=== PATIENT | female | born 2000 | race Caucasian/White ===

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

== ENCOUNTER 2022-05-19 13:03 | Emergency (ER) | payer OTHER ==
[2022-05-19] MEDS ORDERED: FAMOTIDINE 20 MG TAB PO STA (13:18)
[2022-05-19] MEDS ORDERED: methylPREDNISolone SOD SUCCI 125 MG/2 ML VIAL IM ONE (13:18)
--- NOTE | 2022-05-19 14:24 | ED ---
Allergic Reaction HPI - General Chief complaint: Allergic Reaction Stated complaint: hives Time Seen by Provider: 05/19/22 13:13 Source: patient Mode of arrival: ambulatory Limitations: no limitations - History of Present Illness Initial Comments: Patient is a 21-year-old female presenting with chief complaint of hives. Patient states that she has been in hives persisting for a few weeks. She was seen by her PCP who diagnosed her with stress hives, she started her on an antidepressant instructed her to take Benadryl. Patient states that the hives a re now spreading. She denies any difficulty breathing or swallowing. No chest pain, nausea, vomiting, abdominal pain. No new foods, medications, products. - Related Data Home Medications Medication Instructions Recorded Confirmed Naproxen Sodium [Aleve] 220 mg PO DAILY 09/27/18 09/27/18 Pediatric Multivitamin No.30 1 tab PO DAILY 09/27/18 09/27/18 [Multivitamin Children's Gummies] Previous Rx's Medication Instructions Recorded Azithromycin [Zithromax Z-pack (6 250 mg PO DIRECTED #6 tab 08/28/19 tabs)] methylPREDNISolone [Medrol Dose 4 mg PO DIRECTED #1 pack 08/28/19 Pack] methylPREDNISolone Dose Pack 4 mg PO DIRECTED #1 packet 05/19/22 [Medrol Dose Pack] Allergies Allergy/AdvReac Type Severity Reaction Status Date / Time cat dander Allergy Unknown Verified 09/27/18 22:47 Review of Systems ROS Statement: Those systems with pertinent positive or pertinent negative responses have been documented in the HPI. ROS Other: All systems not noted in ROS Statement are negative. Past Medical History Past Medical History: Asthma History of Any Multi-Drug Resistant Organisms: None Reported Past Surgical History: Appendectomy Past Psychological History: Depression Past Alcohol Use History: None Reported Past Drug Use History: None Reported General Exam Limitations: no limitations General appearance: alert, in no apparent distress Head exam: Present: atraumatic, normocephalic, normal inspection Eye exam: Present: normal appearance ENT exam: Present: normal exam, normal oropharynx, mucous membranes moist Neck exam: Present: normal inspection, full ROM. Absent: tenderness Respiratory exam: Present: normal lung sounds bilaterally. Absent: respiratory distress, wheezes, rales, rhonchi, stridor Cardiovascular Exam: Present: regular rate, normal rhythm, normal heart sounds. Absent: systolic murmur, diastolic murmur, rubs, gallop, clicks Neurological exam: Present: alert, oriented X3, CN II-XII intact Psychiatric exam: Present: normal affect, normal mood Skin exam: Present: warm, dry, intact, normal color, urticaria Course Vital Signs 05/19/22 05/19/22 13:07 14:40 Temperature 97.9 F 98.8 F Pulse Rate 100 88 Respiratory 20 18 Rate Blood Pressure 118/80 124/68 O2 Sat by Pulse 98 98 Oximetry Medical Decision Making - Medical Decision Making Patient is a 21-year-old female presenting with chief complaint of urticaria to the trunk and upper extremities have been persisting for a few weeks. Patient has been taking Benadryl with no relief. On examination heart and lungs are clear to auscultation, normal posterior pharynx. Patient is having no difficulty breathing or swallowing. Respirations unlabored. Patient took Benadryl before coming to the ER, she is given Solu-Medrol and Pepcid here. She reports some relief in symptoms. She'll be given a Medrol Dosepak for home and instructed to continue taking Benadryl as needed. Follow-up with PCP. Report back to ER with any new or worsening symptoms. Discussed return parameters and answered all questions. Patient conveyed verbal understanding and agreed to the plan. I discussed this case in detail with my attending Dr. Stafford Disposition Clinical Impression: Urticaria Disposition: HOME SELF-CARE Condition: Good Instructions (If sedation given, give patient instructions): Urticaria (ED) Additional Instructions: Follow-up with PCP. Report back to ER with any new or worsening symptoms. Take medication as prescribed. Prescriptions: methylPREDNISolone Dose Pack [Medrol Dose Pack] 4 mg PO DIRECTED #1 packet Is patient prescribed a controlled substance at d/c from ED?: No Referrals: Laz Griffith MD [Primary Care Provider] - 1-2 days Time of Disposition: 14:23
[2022-05-19 16:48] VITALS: BP 124/68; PULSE 88; RESP 18; TEMP 98.8
== END 2022-05-19 14:40 | disposition home or self-care (01) ==
LOC: EEVIPCON 13:03 → EC 13:03
DX: L50.9 Urticaria, unspecified (principal); J45.909 Unspecified asthma, uncomplicated; Z91.048 Other nonmedicinal substance allergy status
CPT/HCPCS: 99283; 96372; J2930

== ENCOUNTER 2022-06-27 09:38 | Emergency (ER) | payer OTHER ==
[2022-06-27 10:08] VITALS: RESP 16; TEMP 97.4
--- NOTE | 2022-06-27 11:13 | ED ---
General Adult HPI - General Chief complaint: Fall Stated complaint: [facility] - rt arm/leg injury Time Seen by Provider: 06/27/22 10:25 Source: patient, RN notes reviewed Mode of arrival: ambulatory Limitations: no limitations - History of Present Illness Initial comments: 21-year-old female presents to the emergency for a chief complaint of fall. Patient states she was pulling a drawer out at work and was standing on a 1 foot high platform. Patient holds too hard and fell backwards. She has pain on the right side of her neck. Her right hand feels tingly. Her right foot and ankle hurt. She states her lateral right foot is starting to swell. She also hurt her left knee but has no difficulty moving the left knee is able to ambulate on the left knee. Patient states she also has right shoulder elbow and wrist pain but is able to move these and does not think anything is broken.she did not lose consciousness.Patient has no other complaints at this time including shortness of breath, chest pain, abdominal pain, nausea or vomiting, headache, or visual changes. - Related Data Home Medications Medication Instructions Recorded Confirmed Naproxen Sodium [Aleve] 220 mg PO DAILY 09/27/18 09/27/18 Pediatric Multivitamin No.30 1 tab PO DAILY 09/27/18 09/27/18 [Multivitamin Children's Gummies] Previous Rx's Medication Instructions Recorded Azithromycin [Zithromax Z-pack (6 250 mg PO DIRECTED #6 tab 08/28/19 tabs)] methylPREDNISolone [Medrol Dose 4 mg PO DIRECTED #1 pack 08/28/19 Pack] methylPREDNISolone Dose Pack 4 mg PO DIRECTED #1 packet 05/19/22 [Medrol Dose Pack] Allergies Allergy/AdvReac Type Severity Reaction Status Date / Time cat dander Allergy Unknown Verified 06/27/22 10:05 Review of Systems ROS Statement: Those systems with pertinent positive or pertinent negative responses have been documented in the HPI. ROS Other: All systems not noted in ROS Statement are negative. Past Medical History Past Medical History: Asthma History of Any Multi-Drug Resistant Organisms: None Reported Past Surgical History: Appendectomy Past Psychological History: Depression Smoking Status: Current every day smoker Past Alcohol Use History: None Reported Past Drug Use History: None Reported General Exam - General Exam Comments Initial Comments: full range of motion of the upper and lower extremities. No tenderness of the upper extremities or left lower extremity. Patient does have tenderness of the lateral right foot. She also has some mild edema of the lateral right foot with a DP pulse of 2+. Limitations: no limitations General appearance: alert, in no apparent distress Head exam: Present: atraumatic Eye exam: Present: normal appearance, PERRL, EOMI. Absent: scleral icterus, conjunctival injection ENT exam: Present: normal exam, mucous membranes moist Neck exam: Present: tenderness (right posterior lateral neck tenderness, no midline tenderness.), full ROM Respiratory exam: Present: normal lung sounds bilaterally. Absent: respiratory distress, wheezes Cardiovascular Exam: Present: regular rate, normal rhythm, normal heart sounds GI/Abdominal exam: Present: soft, normal bowel sounds. Absent: distended, tenderness Course Vital Signs 06/27/22 10:05 Temperature 97.4 F L Pulse Rate 81 Respiratory 16 Rate Blood Pressure 137/87 O2 Sat by Pulse 99 Oximetry Medical Decision Making - Medical Decision Making vitals are stable. Patient is well-appearing. HPI and physical exam as documented. Was pt. sent in by a medical professional or institution (, PA, ANTHROPOLOGY INSTRUCTOR, urgent care, hospital, or alf...) When possible be specific @ -[No] Did you speak to anyone other than the patient for history (EMS, parent, family, police, friend...)? What history was obtained from this source @ -[No] Did you review nursing and triage notes (agree or disagree)? Why? @ -[I reviewed and agree with nursing and triage notes] Were old charts reviewed (outside hosp., previous admission, EMS record, old EKG, old radiological studies, urgent care reports/EKG's, alf records)? Report findings @ -[No old charts were reviewed] Differential Diagnosis (chest pain, altered mental status, abdominal pain women, abdominal pain men, vaginal bleeding, weakness, fever, dyspnea, syncope, headache, dizziness, GI bleed, back pain, seizure, CVA, palpatations, mental health)? @ -Neck strain versus much less likely fracture versus spasm; ankle fracture versus strain versus soft tissue injury EKG interpreted by me (3pts min.). @ -None X-rays interpreted by me (1pt min.). @ -X-ray of the right foot and ankle show no fracture. CT interpreted by me (1pt min.). @ -CT of the brain and C-spine show no acute fracture or intracranial hemorrhage U/S interpreted by me (1pt. min.). @ -[None done] What testing was considered but not performed or refused? (CT, X-rays, U/S, labs)? Why? @ -[None] What meds were considered but not given or refused? Why? @ -[None] Did you discuss the management of the patient with other professionals (professionals i.e. , PA, ANTHROPOLOGY INSTRUCTOR, lab, RT, psych nurse, social media designer, equity manager, teacher, air force senior officer, window caser)? Give summary @ -Dr. Stafford Was smoking cessation discussed for >3mins.? @ -[No] Was critical care preformed (if so, how long)? @ -[No] Were there social determinants of health that impacted care today? How? (Homelessness, low income, unemployed, alcoholism, drug addiction, transportation, low edu. Level, literacy, decrease access to med. care, care home, rehab)? @ -[No] Was there de-escalation of care discussed even if they declined (Discuss DNR or withdrawal of care, Hospice)? DNR status @ -[No] What co-morbidities impacted this encounter? (DM, HTN, Smoking, COPD, CAD, Cancer, CVA, ARF, Chemo, Hep., AIDS, mental health diagnosis, sleep apnea, morb id obesity)? @ -[None] Was patient admitted / discharged? Hospital course, mention meds given and route, prescriptions, significant lab abnormalities, going to OR and other pertinent info. @ -Imaging was performed and patient was discharged home Undiagnosed new problem with uncertain prognosis? @ -None Drug Therapy requiring intensive monitoring for toxicity (Heparin, Nitro, Insulin, Cardizem)? @ -[No] Were any procedures done? @ -[No] Diagnosis/symptom? @ -Neck strain Acute, or Chronic, or Acute on Chronic? @ -Acute Uncomplicated (without systemic symptoms) or Complicated (systemic symptoms)? @ -Uncomplicated Side effects of treatment? @ -[No] Exacerbation, Progression, or Severe Exacerbation? @ -[No] Poses a threat to life or bodily function? How? (Chest pain, [place], [place], pneumonia, PE, COPD, DKA, ARF, appy, cholecystitis, CVA, Diverticulitis, Homicidal, Suicidal, threat to staff... and all critical care pts) @ -[No] Diagnosis/symptom? @ -Ankle sprain Acute, or Chronic, or Acute on Chronic? @ -Acute Uncomplicated (without systemic symptoms) or Complicated (systemic symptoms)? @ -Uncomplicated Side effects of treatment? @ -none Exacerbation, Progression, or Severe Exacerbation] @ -no Poses a threat to life or bodily function? @ -no Disposition Clinical Impression: Neck strain, Ankle sprain Disposition: HOME SELF-CARE Condition: Good Instructions (If sedation given, give patient instructions): Ankle Sprain (ED), Cervical Strain (ED) Additional Instructions: Please take Motrin and Tylenol for pain. Rest ice and elevate right foot and ankle. Follow-up with your doctor. Return to the emergency room for any worsening symptoms. Is patient prescribed a controlled substance at d/c from ED?: No Referrals: Laz Griffith MD [Primary Care Provider] - 1-2 days Time of Disposition: 13:40
--- NOTE | 2022-06-27 12:03 | XR ---
EXAMINATION TYPE: XR ankle complete RT DATE OF EXAM: 06/27/2022 CLINICAL HISTORY: Pain after injury. TECHNIQUE: Frontal, lateral and oblique images of the right ankle and foot are obtained. COMPARISON: None. FINDINGS: There is no acute fracture/dislocation evident in the right ankle. The ankle mortise appe ars within normal limits. The overlying soft tissue appears unremarkable. There is no acute fracture or dislocation evident in the right foot. The joint spaces in the right f oot are preserved. Overlying soft tissue is unremarkable. IMPRESSION: There is no acute fracture or dislocation in the right ankle or foot.
--- NOTE | 2022-06-27 12:14 | CT ---
EXAMINATION TYPE: CT brain isaak wo con DATE OF EXAM: 06/27/2022 COMPARISON: NONE HISTORY: Fall at work with headache and neck pain. CT DLP: 1505.6 mGycm. Automated Exposure Control for Dose Reduction was Utilized. TECHNIQUE: CT scan of the head and cervical spine are performed without contrast. FINDINGS: There is no acute intracranial hemorrhage, mass effect, or midline shift identified. The ventricles and sulci are within normal limits in size. Forman-white matter differentiation is maintai parminder. The globes are intact and the visualized sinuses are clear. The calvarium is intact. Cervical spine is visualized in its entirety from C1 through upper thoracic levels and demonstrates s traightened alignment without evidence of acute fracture or dislocation. Prevertebral soft tissue ap pears within normal limits. The C1-C2 articulation is within normal limits. Vertebral body heights and disc space heights are maintained. Spinal canal is preserved. Axial images show normal size thyro id gland. Lung apices show no pneumothorax. IMPRESSION: 1. There is no acute fracture or dislocation evident in the cervical spine. 2. No acute intracranial hemorrhage or midline shift is seen.
--- NOTE | 2022-06-27 13:18 | XR ---
Please refer to same day right ankle report for complete details on the right foot.
[2022-06-27 14:01] VITALS: BP 142/75; PULSE 94
== END 2022-06-27 14:00 | disposition home or self-care (01) ==
LOC: EC 09:38
DX: S16.1XXA Strain of muscle, fascia and tendon at neck level, initial encounter (principal); S93.401A Sprain of unspecified ligament of right ankle, initial encounter; J45.909 Unspecified asthma, uncomplicated; F17.200 Nicotine dependence, unspecified, uncomplicated; W18.30XA Fall on same level, unspecified, initial encounter; Y93.89 Activity, other specified; Y92.69 Other specified industrial and construction area as the place of occurrence of the external cause
CPT/HCPCS: 70450; 72125; 99284

== ENCOUNTER 2023-01-15 06:18 | Emergency (ER) | payer OTHER ==
[2023-01-15 06:23] VITALS: RESP 16
[2023-01-15] MEDS ORDERED: methylPREDNISolone SOD SUCCI 125 MG/2 ML VIAL IV STA (06:36)
[2023-01-15] MEDS ORDERED: KETOROLAC 15 MG/ML 1 ML VIAL IVP STA (06:36)
[2023-01-15] MEDS ORDERED: ORPHENADRINE 30 MG/ML 2 ML VIAL IVP STA (06:36)
--- NOTE | 2023-01-15 07:11 | ED ---
Extremity Problem HPI - General Chief complaint: Extremity Problem,Nontraumatic Stated complaint: Right Arm Swelling, Neck Pain, Shoulder Pain Time Seen by Provider: 01/15/23 06:25 Source: patient, RN notes reviewed Mode of arrival: ambulatory Limitations: no limitations - History of Present Illness Initial comments: 22-year-old female presents emergency department to complaint of right arm pain. Patient states that she had an injury back in June at work. She states she is feeling better until last few days. Patient states she seen in emergency from for worsening symptoms and discharged. Patient states that she has some numbness to her right arm. Patient states that she has pain with range of motion right shoulder. Patient denies any associated weakness. She states her right arm feels swollen up into her neck. Denies any chest pain or shortness breath no fevers or chills. - Related Data Home Medications Medication Instructions Recorded Confirmed Naproxen Sodium [Aleve] 220 mg PO DAILY 09/27/18 09/27/18 Pediatric Multivitamin No.30 1 tab PO DAILY 09/27/18 09/27/18 [Multivitamin Children's Gummies] Previous Rx's Medication Instructions Recorded Cyclobenzaprine HCl 10 mg PO TID PRN 7 Days #21 tab 01/12/23 Ketorolac [Toradol] 10 mg PO Q8H PRN 5 Days #15 tab 01/12/23 predniSONE 50 mg PO DAILY #5 tab 01/15/23 Allergies Allergy/AdvReac Type Severity Reaction Status Date / Time cat dander Allergy Unknown Verified 01/12/23 08:47 Review of Systems ROS Statement: Those systems with pertinent positive or pertinent negative responses have been documented in the HPI. ROS Other: All systems not noted in ROS Statement are negative. Past Medical History Past Medical History: Asthma History of Any Multi-Drug Resistant Organisms: None Reported Past Surgical History: Appendectomy Past Psychological History: Anxiety, Depression Smoking Status: Current every day smoker Past Alcohol Use History: None Reported Past Drug Use History: None Reported General Exam Limitations: no limitations General appearance: alert, in no apparent distress Head exam: Present: atraumatic, normocephalic, normal inspection Eye exam: Present: normal appearance, PERRL, EOMI. Absent: scleral icterus, conjunctival injection, periorbital swelling ENT exam: Present: normal exam, normal oropharynx, mucous membranes moist Neck exam: Present: normal inspection, tenderness, full ROM. Absent: meningismus, lymphadenopathy Respiratory exam: Present: normal lung sounds bilaterally. Absent: respiratory distress, wheezes, rales, rhonchi, stridor Cardiovascular Exam: Present: normal rhythm, tachycardia, normal heart sounds. Absent: systolic murmur, diastolic murmur, rubs, gallop, clicks Neurological exam: Present: alert, oriented X3, reflexes normal. Absent: motor sensory deficit Skin exam: Present: warm, dry, intact, normal color. Absent: rash Course Vital Signs 01/15/23 06:21 Temperature 97.3 F L Pulse Rate 110 H Respiratory 16 Rate Blood Pressure 138/87 O2 Sat by Pulse 100 Oximetry Medical Decision Making - Medical Decision Making Was pt. sent in by a medical professional or institution ([facility] [place], [employer]PLER RADIOACT[employer] WASTE, urgent care, hospital, or longterm...) When possible be specific @ -No Did you speak to anyone other than the patient for history (EMS, parent, family, police, friend...)? What history was obtained from this source @ -No Did you review nursing and triage notes (agree or disagree)? Why? @ -I reviewed and agree with nursing and triage notes Were old charts reviewed (outside hosp., previous admission, EMS record, old EKG, old radiological studies, urgent care reports/EKG's, longterm records)? Report findings @ -Reviewed recent ER visit Differential Diagnosis (chest pain, altered mental status, abdominal pain women, abdominal pain men, vaginal bleeding, weakness, fever, dyspnea, syncope, headache, dizziness, GI bleed, back pain, seizure, CVA, palpatations, mental health, musculoskeletal)? @ -Cervical radiculopathy, trapezius muscle spasm, right shoulder strain, DVT EKG interpreted by me (3pts min.). @ -None X-rays interpreted by me (1pt min.). @ -Cervical x-ray shows no acute osseous lesion, abnormality CT interpreted by me (1pt min.). @ -None done U/S interpreted by me (1pt. min.). @ -Ultrasound right venous Doppler no evidence of DVT What testing was considered but not performed or refused? (CT, X-rays, U/S, labs)? Why? @ -None What meds were considered but not given or refused? Why? @ -None Did you discuss the management of the patient with other professionals (professionals i.e. , PA, SAMPLER RADIOACTIVE WASTE, lab, RT, psych nurse, health care social worker, toy designer, teacher, chief clinical officer, ed case manager)? Give summary @ -No Was smoking cessation discussed for >3mins.? @ -No Was critical care preformed (if so, how long)? @ -No Were there social determinants of health that impacted care today? How? (Homelessness, low income, unemployed, alcoholism, drug addiction, transportation, low edu. Level, literacy, decrease access to med. care, usp, rehab)? @ -No Was there de-escalation of care discussed even if they declined (Discuss DNR or withdrawal of care, Hospice)? DNR status @ -No What co-morbidities impacted this encounter? (DM, HTN, Smoking, COPD, CAD, Cancer, CVA, ARF, Chemo, Hep., AIDS, mental health diagnosis, sleep apnea, morbid obesity)? @ -None Was patient admitted / discharged? Hospital course, mention meds given and route, prescriptions, significant lab abnormalities, going to OR and other pertinent info. @ -Discharge patient has right cervical adenopathy related to trapezius muscle spasm. Patient feels improved after Toradol, Norflex. Patient imaging was negative she has no focal weakness. Patient will follow-up with orthopedics return parameters discussed. Undiagnosed new problem with uncertain prognosis? @ -No Drug Therapy requiring intensive monitoring for toxicity (Heparin, Nitro, Insulin, Cardizem)? @ -No Were any procedures done? @ -No Diagnosis/symptom? @ -Cervical radiculopathy, right trapezius muscle spasm Acute, or Chronic, or Acute on Chronic? @ -Acute Uncomplicated (without systemic symptoms) or Complicated (systemic symptoms)? @ -Uncomplicated Side effects of treatment? @ -No Exacerbation, Progression, or Severe Exacerbation? @ -No Poses a threat to life or bodily function? How? (Chest pain, [place], [place], pneumonia, PE, COPD, DKA, ARF, appy, cholecystitis, CVA, Diverticulitis, Homicidal, Suicidal, threat to staff... and all critical care pts) @ -No Disposition Clinical Impression: Cervical radicular pain, Trapezius muscle spasm Disposition: HOME SELF-CARE Condition: Stable Instructions (If sedation given, give patient instructions): Cervical Radiculopathy (ED), Muscle Spasm (ED) Additional Instructions: Please return to the Emergency Department if symptoms worsen or any other concerns. Prescriptions: predniSONE 50 mg PO DAILY #5 tab Is patient prescribed a controlled substance at d/c from ED?: No Referrals: Zackary Rose DO [Doctor of Osteopathic Medicine] - 1-2 days Time of Disposition: 08:00
--- NOTE | 2023-01-15 07:16 | XR ---
EXAMINATION TYPE: XR cervical spine comp DATE OF EXAM: 01/15/2023 CLINICAL HISTORY: pain COMPARISON: 05/03/2015 TECHNIQUE: Frontal, lateral, oblique, swimmers, and open mouth view of the cervical spine are obtaine d. FINDINGS: The cervical spine is visualized in its entirety from C1 thru the top of T1 level. It is s atisfactory in alignment without evidence of acute fracture or dislocation. The pre-vertebral soft t issue appears within normal limits. Disc spaces are well preserved. The C1-C2 articulation is unremar kable on the open mouth view. The oblique images are within normal limits. IMPRESSION: Normal evaluation of the cervical spine.
--- NOTE | 2023-01-15 07:52 | US ---
EXAMINATION TYPE: US venous doppler duplex UE RT DATE OF EXAM: 01/15/2023 COMPARISON: NONE CLINICAL INDICATION: Female, 22 years old with history of pain; Pain in shoulder x 4 days. No hx of D VT. Patient does not take blood thinners. SIDE PERFORMED: Right Right Arm: No evidence of DVT at this time. IMPRESSION: No evidence of DVT at this time.
[2023-01-15] MEDS ORDERED: ACET/COD 300 MG/30 MG STARTER PACK 6 TAB BTL PO STA (08:00)
[2023-01-15 08:23] VITALS: BP 112/74; PULSE 81; TEMP 97.8
== END 2023-01-15 08:25 | disposition home or self-care (01) ==
LOC: EC 06:18
DX: M54.12 Radiculopathy, cervical region (principal); M62.838 Other muscle spasm; J45.909 Unspecified asthma, uncomplicated; F17.200 Nicotine dependence, unspecified, uncomplicated
CPT/HCPCS: 72050; 93971; 99284; 96374; 96375 ×2; J2360; J2930; J1885

== ENCOUNTER 2023-12-02 09:31 | Emergency (ER) | payer OTHER ==
--- NOTE | 2023-12-02 10:55 | ED ---
URI HPI - General Chief Complaint: Upper Respiratory Infection Stated Complaint: cough,sore throat Time Seen by Provider: 12/02/23 10:54 Source: patient, RN notes reviewed Mode of arrival: wheelchair Limitations: no limitations - History of Present Illness Initial Comments: 23-year-old female presented to the ER with a chief complaint of cough and conge stion. 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 She states her symptoms started on Wednesday and seem to be getting worse. She is endorsing cough, congestion and sore throat. Patient does have a past medical history significant of asthma. She reports she has been using her inhaler with minor relief. She denies any known fevers but does endorse chills. Denies any abdominal pain admits to diarrhea. No peripheral edema or chest pain. - Related Data Home Medications Medication Instructions Recorded Confirmed No Known Home Medications 12/02/23 12/02/23 Allergies Allergy/AdvReac Type Severity Reaction Status Date / Time cat dander Allergy itching, Verified 12/02/23 11:46 sneezing Review of Systems ROS Statement: Those systems with pertinent positive or pertinent negative responses have been documented in the HPI. ROS Other: All systems not noted in ROS Statement are negative. Past Medical History Past Medical History: Asthma History of Any Multi-Drug Resistant Organisms: None Reported Past Surgical History: Appendectomy Past Psychological History: Anxiety, Depression Smoking Status: Current every day smoker Past Alcohol Use History: None Reported Past Drug Use History: None Reported General Exam Limitations: no limitations General appearance: alert, in no apparent distress ENT exam: Present: normal exam, normal oropharynx, mucous membranes moist, TM's normal bilaterally Neck exam: Present: normal inspection. Absent: tenderness, meningismus, lymphadenopathy Respiratory exam: Present: normal lung sounds bilaterally. Absent: respiratory distress, wheezes, rales, rhonchi, stridor Cardiovascular Exam: Present: regular rate, normal rhythm, normal heart sounds. Absent: systolic murmur, diastolic murmur, rubs, gallop, clicks Extremities exam: Present: normal inspection, full ROM, normal capillary refill. Absent: tenderness, pedal edema, joint swelling, calf tenderness Skin exam: Present: warm, dry, intact, normal color. Absent: rash Course Vital Signs 12/02/23 12/02/23 12/02/23 09:33 10:17 11:36 Temperature 98.2 F Pulse Rate 96 71 Respiratory 16 17 Rate Blood Pressure 132/83 O2 Sat by Pulse 97 Oximetry 12/02/23 11:44 Temperature Pulse Rate 75 Respiratory Rate Blood Pressure O2 Sat by Pulse Oximetry Medical Decision Making - Medical Decision Making Was pt. sent in by a medical professional or institution (BETITO Urbina, SNOW TECHNICIAN, urgent care, hospital, or long-term...) When possible be specific @ -No Did you speak to anyone other than the patient for history (EMS, parent, family, police, friend...)? What history was obtained from this source @ -No Did you review nursing and triage notes (agree or disagree)? Why? @ -I reviewed and agree with nursing and triage notes Were old charts reviewed (outside hosp., previous admission, EMS record, old EKG, old radiological studies, urgent care reports/EKG's, long-term records)? Report findings @ -No old charts were reviewed Differential Diagnosis (chest pain, altered mental status, abdominal pain women, abdominal pain men, vaginal bleeding, weakness, fever, dyspnea, syncope, headache, dizziness, GI bleed, back pain, seizure, CVA, palpatations, mental health, musculoskeletal)? @ -COVID, RSV, influenza, viral sinusitis, pneumonia this list is not meant to be all-inclusive EKG interpreted by me (3pts min.). @ -None X-rays interpreted by me (1pt min.). @ -Chest x-ray interpreted by me negative for acute cardiopulmonary process. CT interpreted by me (1pt min.). @ -None done U/S interpreted by me (1pt. min.). @ -None done What testing was considered but not performed or refused? (CT, X-rays, U/S, labs)? Why? @ -None What meds were considered but not given or refused? Why? @ -Patient refused decadron. Did you discuss the management of the patient with other professionals (professionals i.e. BETITO Urbina, SNOW TECHNICIAN, lab, RT, psych nurse, social media content manager, track worker, teacher, job placement officer, casework specialist)? Give summary @ -No Was smoking cessation discussed for >3mins.? @ -No Was critical care preformed (if so, how long)? @ -No Were there social determinants of health that impacted care today? How? (Homelessness, low income, unemployed, alcoholism, drug addiction, transportation, low edu. Level, literacy, decrease access to med. care, [facility], rehab)? @ -No Was there de-escalation of care discussed even if they declined (Discuss DNR or withdrawal of care, Hospice)? DNR status @ -No What co-morbidities impacted this encounter? (DM, HTN, Smoking, COPD, CAD, Cancer, CVA, ARF, Chemo, Hep., AIDS, mental health diagnosis, sleep apnea, morbid obesity)? @ -Asthma Was patient admitted / discharged? Hospital course, mention meds given and route, prescriptions, significant lab abnormalities, going to OR and other pertinent info. @ -Discharge. 23-year-old female presented to the ER with a chief complaint of cough and congestion. History and physical exam completed. Vitals stable. Patient in no signs of acute distress and nontoxic-appearing. Lung sounds clear to auscultation bilaterally. Viral swabs, strep and chest x-ray will be obtained. Patient in agreement with this plan. COVID, RSV, influenza negative. Strep negative. Chest x-ray interpreted by me negative for acute cardiopulmonary process. Given onset of symptoms of 2 days ago and laboratory studies symptoms believed to be viral in nature. DuoNeb treatment in the ER with improvement of symptoms. Patient stable for discharge. Return parameters discussed. Patient verbally expressed understanding and agreement with care plan. Patient discharged in stable condition with follow-up to PCP. Case discussed with ED attending, Dr. Mills. Undiagnosed new problem with uncertain prognosis? @ -No Drug Therapy requiring intensive monitoring for toxicity (Heparin, Nitro, Insulin, Cardizem)? @ -No Were any procedures done? @ -No Diagnosis/symptom? @ -Acute viral sinusitis/viral illness Acute, or Chronic, or Acute on Chronic? @ -Acute Uncomplicated (without systemic symptoms) or Complicated (systemic symptoms)? @ -Uncomplicated Side effects of treatment? @ -No Exacerbation, Progression, or Severe Exacerbation? @ -No Poses a threat to life or bodily function? How? (Chest pain, [place], [place], pneumonia, PE, COPD, DKA, ARF, appy, cholecystitis, CVA, Diverticulitis, Homicidal, Suicidal, threat to staff... and all critical care pts) @ -No - Lab Data Lab Results 12/02/23 12/02/23 Range/Units 09:38 09:38 Influenza Type A (PCR) Not Detected (Not Detectd) Influenza Type B (PCR) Not Detected (Not Detectd) RSV (PCR) Not Detected (Not Detectd) SARS-CoV-2 (PCR) Not Detected (Not Detectd) Group A Strep (PCR) NOT DETECTED (Not Detectd) - Radiology Data Radiology results: report reviewed, image reviewed Disposition Clinical Impression: Viral infection, Acute viral sinusitis Disposition: HOME SELF-CARE Condition: Stable Instructions (If sedation given, give patient instructions): Sinusitis (ED) Additional Instructions: Continue with [id number] Tylenol and Motrin for symptom control. Return to the ER for any new or worsening concerns. Follow-up with PCP. Is patient prescribed a controlled substance at d/c from ED?: No Referrals: None,Stated [Primary Care Provider] - 1-2 days Forms: Area PCPs Time of Disposition: 11:19
--- NOTE | 2023-12-02 10:56 | XR ---
EXAMINATION TYPE: XR chest 2V DATE OF EXAM: 12/02/2023 COMPARISON: 08/28/2019 TECHNIQUE: PA and lateral views submitted. HISTORY: Cough FINDINGS: The lungs are clear and there is no pneumothorax, pleural effusion, or focal pneumonia. Heart size normal and no overt failure. Osseous structures intact. IMPRESSION: 1. No acute process.
[2023-12-02] MEDS: DEXAMETHASONE SOD PHOSPHATE 4 MG/ML 1 ML VIAL IM STA (11:27)
[2023-12-02] MEDS: IPRATROPIUM-ALBUTEROL 3 ML NEB INHALATION STA (11:35)
[2023-12-02 12:54] VITALS: BP 118/79; PULSE 98; RESP 18; TEMP 98.5
== END 2023-12-02 12:23 | disposition home or self-care (01) ==
LOC: EC 09:31
DX: J01.90 Acute sinusitis, unspecified (principal); B97.89 Other viral agents as the cause of diseases classified elsewhere; F17.200 Nicotine dependence, unspecified, uncomplicated; Z91.048 Other nonmedicinal substance allergy status
CPT/HCPCS: 71046; 87636; 87651; 94640; 99283

== ENCOUNTER 2024-01-15 08:11 | Emergency (ER) | payer OTHER ==
[2024-01-15 08:16] VITALS: RESP 16; TEMP 97.9
--- NOTE | 2024-01-15 08:37 | ED ---
General Adult HPI - General Chief complaint: Nausea/Vomiting/Diarrhea Stated complaint: Abd pain Time Seen by Provider: 01/15/24 08:16 Source: patient, RN notes reviewed Mode of arrival: ambulatory Limitations: no limitations - History of Present Illness Initial comments: 23-year-old G1, P0 female presenting to the emergency department at 11 weeks gestation for evaluation of abdominal pain, nausea, vomiting. She notes that this morning around 4 AM she started experiencing some pain in her upper abdomen. She had 7 episodes of nonbloody, nonbilious vomiting following this. She does note that she had vomiting on Wednesday as well but has been doing well since then. She does admit to changes in her appetite since becoming . She denies any significant past medical history, is not currently on any medications. She denies recent fever, chills. Denies vaginal bleeding. - Related Data Home Medications Medication Instructions Recorded Confirmed No Known Home Medications 12/02/23 12/02/23 Allergies Allergy/AdvReac Type Severity Reaction Status Date / Time cat dander Allergy itching, Verified 12/02/23 11:46 sneezing Review of Systems ROS Statement: Those systems with pertinent positive or pertinent negative responses have been documented in the HPI. ROS Other: All systems not noted in ROS Statement are negative. Past Medical History Past Medical History: Asthma History of Any Multi-Drug Resistant Organisms: None Reported Past Surgical History: Appendectomy Past Psychological History: Anxiety, Depression Smoking Status: Former smoker Past Alcohol Use History: None Reported Past Drug Use History: None Reported General Exam Limitations: no limitations General appearance: alert, in no apparent distress Head exam: Present: atraumatic, normocephalic, normal inspection Eye exam: Present: normal appearance, PERRL, EOMI. Absent: scleral icterus, conjunctival injection, periorbital swelling ENT exam: Present: normal exam, mucous membranes moist Neck exam: Present: normal inspection. Absent: tenderness, meningismus, lympha denopathy Respiratory exam: Present: normal lung sounds bilaterally. Absent: respiratory distress, wheezes, rales, rhonchi, stridor Cardiovascular Exam: Present: regular rate, normal rhythm, normal heart sounds. Absent: systolic murmur, diastolic murmur, rubs, gallop, clicks GI/Abdominal exam: Present: soft, tenderness, normal bowel sounds. Absent: distended, guarding, rebound, rigid Extremities exam: Present: normal inspection, full ROM, normal capillary refill. Absent: tenderness, pedal edema, joint swelling, calf tenderness Back exam: Present: normal inspection Neurological exam: Present: alert, oriented X3 Psychiatric exam: Present: normal affect, normal mood Skin exam: Present: warm, dry, intact, normal color. Absent: rash Course Vital Signs 01/15/24 01/15/24 08:13 12:48 Temperature 97.9 F Pulse Rate 96 88 Respiratory 16 16 Rate Blood Pressure 115/76 120/60 O2 Sat by Pulse 98 98 Oximetry Medical Decision Making - Medical Decision Making Was pt. sent in by a medical professional or institution (, PA, FASHION BUYER, urgent care, hospital, or alf...) When possible be specific @ -No Did you speak to anyone other than the patient for history (EMS, parent, family, police, friend...)? What history was obtained from this source @ -No Did you review nursing and triage notes (agree or disagree)? Why? @ -I reviewed and agree with nursing and triage notes Were old charts reviewed (outside hosp., previous admission, EMS record, old EKG, old radiological studies, urgent care reports/EKG's, alf records)? Report findings @ -No old charts were reviewed Differential Diagnosis (chest pain, altered mental status, abdominal pain women, abdominal pain men, vaginal bleeding, weakness, fever, dyspnea, syncope, headache, dizziness, GI bleed, back pain, seizure, CVA, palpatations, mental health, musculoskeletal)? @ -Differential Abdominal Pain Women: Appendicitis, Cholecystitis, diverticulosis, ischemic bowel, pancreatitis, hepatitis, UTI, gastroenteritis, AAA, incarcerated hernia, bowel obstruction, constipation, inflammatory bowel, hepatitis, peptic ulcer disease, splenic infarction, perforated viscus, vulvitis, ovarian torsion, PID, kidney stone, placenta abruption, this is not meant to be an all-inclusive list EKG interpreted by me (3pts min.). @ -None X-rays interpreted by me (1pt min.). @ -None done CT interpreted by me (1pt min.). @ -None done U/S interpreted by me (1pt. min.). @ -Gallbladder us shows cholelithiasis with no evidence of acute cholecystitis ultrasound shows a single live intrauterine measuring 11 weeks 5 days with a heart rate of 153 What testing was considered but not performed or refused? (CT, X-rays, U/S, labs)? Why? @ -None What meds were considered but not given or refused? Why? @ -None Did you discuss the management of the patient with other professionals (professionals i.e. , PA, FASHION BUYER, lab, RT, psych nurse, social psychologist, retort condenser attendant, teacher, aoc airspace control officer, egg caser)? Give summary @ -No Was smoking cessation discussed for >3mins.? @ -No Was critical care preformed (if so, how long)? @ -No Were there social determinants of health that impacted care today? How? (Homelessness, low income, unemployed, alcoholism, drug addiction, transportation, low edu. Level, literacy, decrease access to med. care, halfway, rehab)? @ -No Was there de-escalation of care discussed even if they declined (Discuss DNR or withdrawal of care, Hospice)? DNR status @ -No What co-morbidities impacted this encounter? (DM, HTN, Smoking, COPD, CAD, Cancer, CVA, ARF, Chemo, Hep., AIDS, mental health diagnosis, sleep apnea, morbid obesity)? @ -None Was patient admitted / discharged? Hospital course, mention meds given and route, prescriptions, significant lab abnormalities, going to OR and other pertinent info. @ -Discharge. Patient presented to the emergency department for evaluation of nausea and vomiting and epigastric abdominal pain in . Laboratory studies obtained.CBC unremarkable, bilirubin 0.6, mild elevation of AST and ALT, normal alk phos, normal lipase at 173; quantitative hCG 69,916; UA shows 1+ ketones, no evidence of infectious process. An ultrasound of the gallbladder was obtained revealing cholelithiasis without evidence for acute cholecystitis. ultrasound shows a single live intrauterine measuring 11 weeks 5 days. Patient was provided IV fluids and medication for symptom control while in the emergency department patient reports improvement in symptoms. Patient will be discharged home. Advised to follow-up with her WAREHOUSE OPERATIONS MANAGER. She is understanding agreeable plan. Patient stable at time of discharge. Case discussed with Dr. Cordova. Undiagnosed new problem with uncertain prognosis? @ -No Drug Therapy requiring intensive monitoring for toxicity (Heparin, Nitro, Insulin, Cardizem)? @ -No Were any procedures done? @ -No Diagnosis/symptom? @ -Nausea and vomiting , cholelithiasis Acute, or Chronic, or Acute on Chronic? @ -Acute Uncomplicated (without systemic symptoms) or Complicated (systemic symptoms)? @ -Uncomplicated Side effects of treatment? @ -No Exacerbation, Progression, or Severe Exacerbation? @ -No Poses a threat to life or bodily function? How? (Chest pain, [place], [place], pneumonia, PE, COPD, DKA, ARF, appy, cholecystitis, CVA, Diverticulitis, Homicidal, Suicidal, threat to staff... and all critical care pts) @ -No - Lab Data Result diagrams: 01/15/24 08:36 01/15/24 08:36 Lab Results 01/15/24 01/15/24 01/15/24 Range/Units 08:36 08:36 08:36 WBC 9.3 (3.8-10.6) k/uL RBC 4.69 (3.80-5.40) m/uL Hgb 14.0 (11.4-16.0) gm/dL Hct 40.9 (34.0-46.0) % MCV 87.3 (80.0-100.0) fL MCH 29.9 (25.0-35.0) pg MCHC 34.3 (31.0-37.0) g/dL RDW 12.8 (11.5-15.5) % Plt Count 381 (150-450) k/uL MPV 7.7 Neutrophils % 70 % Lymphocytes % 19 % Monocytes % 7 % Eosinophils % 2 % Basophils % 1 % Neutrophils # 6.5 (1.3-7.7) k/uL Lymphocytes # 1.8 (1.0-4.8) k/uL Monocytes # 0.7 (0-1.0) k/uL Eosinophils # 0.2 (0-0.7) k/uL Basophils # 0.0 (0-0.2) k/uL Sodium 137 (137-145) mmol/L Potassium 4.0 (3.5-5.1) mmol/L Chloride 109 H (98-107) mmol/L Carbon Dioxide 20 L (22-30) mmol/L Anion Gap 8 mmol/L BUN 6 L (7-17) mg/dL Creatinine 0.42 L (0.52-1.04) mg/dL Est GFR (CKD-EPI)AfAm >90 (>60 ml/min/1.73 sqM) Est GFR (CKD-EPI)NonAf >90 (>60 ml/min/1.73 sqM) Glucose 92 (74-99) mg/dL Calcium 9.9 (8.4-10.2) mg/dL Total Bilirubin 0.6 (0.2-1.3) mg/dL AST 37 H (14-36) U/L ALT 55 H (4-34) U/L Alkaline Phosphatase 49 (38-126) U/L Total Protein 7.0 (6.3-8.2) g/dL Albumin 4.2 (3.5-5.0) g/dL Amylase 35 (30-110) U/L Lipase 173 (23-300) U/L HCG, Quant 40753.7 mIU/mL Urine Color Yellow Urine Appearance Clear (Clear) Urine pH 6.0 (5.0-8.0) Ur Specific Lueders 1.019 (1.001-1.035) Urine Protein Negative (Negative) Urine Glucose (UA) Negative (Negative) Urine Ketones 1+ H (Negative) Urine Blood Negative (Negative) Urine Nitrite Negative (Negative) Urine Bilirubin Negative (Negative) Urine Urobilinogen 2.0 (<2.0) mg/dL Ur Leukocyte Esterase Negative (Negative) Disposition Clinical Impression: Abdominal pain affecting Disposition: HOME SELF-CARE Condition: Stable Instructions (If sedation given, give patient instructions): Acute Nausea and Vomiting (ED), Abdominal Pain in (ED) Additional Instructions: You may utilize doxylamine (Unisom) with vitamin B6 at night to help with nausea and vomiting. Please follow up with your WAREHOUSE OPERATIONS MANAGER. Return to the emergency department for new or worsening symptoms. Is patient prescribed a controlled substance at d/c from ED?: No Referrals: Frederick Gilmore MD [Primary Care Provider] - 1-2 days
[2024-01-15] MEDS: ONDANSETRON 4 MG/2 ML VIAL IVP STA (08:58)
[2024-01-15] MEDS: diphenhydrAMINE 50 MG/ML 1 ML VIAL IVP STA (09:00)
[2024-01-15] MEDS: ACETAMINOPHEN TAB 500 MG TAB PO STA (09:00)
[2024-01-15] MEDS: SODIUM CHLORIDE 0.9% 2,000 ML IV STA (09:00)
[2024-01-15 09:31] LABS: Basophils % (A) 1 %; Eosinophils # (A) 0.2 k/uL (0-0.7); Eosinophils % (A) 2 %; HCT 40.9 % (34.0-46.0); Lymphocytes # (A) 1.8 k/uL (1.0-4.8); Lymphocytes % (A) 19 %; MCH 29.9 pg (25.0-35.0); MCHC 34.3 g/dL (31.0-37.0); MCV 87.3 fL (80.0-100.0); Mean Platelet Volume 7.7; Monocytes # (A) 0.7 k/uL (0-1.0); Monocytes % (A) 7 %; Neutrophils # (A) 6.5 k/uL (1.3-7.7); Neutrophils % (A) 70 %; Platelet Count 381 k/uL (150-450); RBC 4.69 m/uL (3.80-5.40); RDW 12.8 % (11.5-15.5); WBC 9.3 k/uL (3.8-10.6)
[2024-01-15 09:33] LABS: ALT 55 U/L (4-34); AST 37 U/L (14-36); African American GFR (CKD) >90 (>60 ml/min/1.73 sqM); Albumin 4.2 g/dL (3.5-5.0); Alkaline Phosphatase 49 U/L (38-126); Amylase 35 U/L (30-110); Anion Gap 8 mmol/L; Blood Urea Nitrogen 6 mg/dL (7-17); Calcium 9.9 mg/dL (8.4-10.2); Carbon Dioxide 20 mmol/L (22-30); Chloride 109 mmol/L (98-107); Glucose 92 mg/dL (74-99); Lipase 173 U/L (23-300); Non-African American GFR(CKD) >90 (>60 ml/min/1.73 sqM); Sodium 137 mmol/L (137-145); Total Bilirubin 0.6 mg/dL (0.2-1.3)
--- NOTE | 2024-01-15 10:11 | US ---
EXAMINATION TYPE: US gallbladder DATE OF EXAM: 01/15/2024 COMPARISON: NONE CLINICAL INDICATION: Female, 23 years old with history of pain, 11 wks; pain nausea and vomiting TECHNIQUE: Multiple sonographic images of the right upper quadrant are obtained. FINDINGS: EXAM MEASUREMENTS: Liver Length: 16 cm Gallbladder Wall: .3 cm CBD: .7 cm Right Kidney: 11.6 x 5.7 x 4.6 cm Pancreas: Obscured by bowel gas Liver: wnl Gallbladder: multiple echogenic foci visualized Evidence for sonographic Simon's sign: no CBD: upper limits Right Kidney: No hydronephrosis or masses seen IMPRESSION: 1. Cholelithiasis but no gallbladder distention, wall thickening or pericholecystic fluid. 2. Negative sonographic Simon sign. 3. Common bile duct upper limits of normal measuring 7 mm.
--- NOTE | 2024-01-15 10:13 | US ---
EXAMINATION TYPE: Transabdominal DATE OF EXAM: 01/15/2024 9:58 AM COMPARISON: NONE CLINICAL INDICATION: Female, 23 years old with history of pain, 11 wks; pain nausea and vomiting EXAM PERFORMED: Transabdominal (TA) EXAM MEASUREMENTS: GESTATIONAL AGE / DATING Physician Established: Not yet established Dates by LMP: (13 weeks/0 days) EDC: 07/22/2024 Dates by First Scan: No previous this is first scan Dates by Current Scan for: (11 weeks/5 days) EDC: 07/31/2024 MATERNAL ANATOMY Uterus: 12.8 x 6.8 x 9.8 cm Right Ovary: 3.2 x 1.7 x 2.6 cm Left Ovary: 2.9 x 2.0 x 2.1 cm Post CDS / Adnexa: wnl Presence of free fluid: no Presence of corpus luteal cyst: no Presence of subchorionic bleed: no GESTATION / SURVEY CRL: 4.97 cm (11 weeks/5 days) Heart Rate: 153 bpm Rhythm: Normal IUP: Viable IUP Beta HcG (if available): Not available at this time IMPRESSION: 1. Single viable intrauterine with a gestational age of 11 weeks and 5 days based on crown- rump length. 2. No subchorionic bleed or adnexal abnormality.
[2024-01-15 10:20] LABS: HCG,Quantitative Serum 69916.7 mIU/mL
[2024-01-15 11:04] LABS: Appearance,Urine Clear (Clear); Bilirubin,Urine Negative (Negative); Blood,Urine Negative (Negative); Color,Urine Yellow; Glucose,Urine (UA) Negative (Negative); Ketones,Urine 1+ (Negative); Leukocyte Esterase,Urine Negative (Negative); Nitrite,Urine Negative (Negative); Protein,Urine Negative (Negative); Specific Gravity,Urine 1.019 (1.001-1.035)
[2024-01-15] MEDS: ONDANSETRON 4 MG ODT STARTER PACK 2 TAB BTL PO STA (12:39)
[2024-01-15] MEDS: METOCLOPRAMIDE 5 MG/ML 2 ML VIAL IVP STA (12:40)
[2024-01-15 12:49] VITALS: BP 120/60; PULSE 88
== END 2024-01-15 12:49 | disposition home or self-care (01) ==
LOC: EC 08:11
DX: O26.891 Other specified pregnancy related conditions, first trimester (principal); K80.20 Calculus of gallbladder without cholecystitis without obstruction; Z88.8 Allergy status to other drugs, medicaments and biological substances; Z87.891 Personal history of nicotine dependence; Z3A.11 11 weeks gestation of pregnancy
CPT/HCPCS: 36415; 80053; 82150; 83690; 85025; 81003; 84702; 76801; 76705; 99284; 96374; 96375 ×2; 96361 ×2; J1200; J2765; J2405; S0119

== ENCOUNTER 2024-03-20 12:48 | Emergency (ER) | payer OTHER ==
[2024-03-20 12:51] VITALS: BP 104/70; PULSE 67; RESP 20; TEMP 97.8
--- NOTE | 2024-03-20 13:47 | ED ---
Abdominal Pain HPI - General Chief Complaint: Abdominal Pain Stated Complaint: Vomiting Time Seen by Provider: 03/20/24 13:01 Source: patient Mode of arrival: ambulatory Limitations: no limitations - History of Present Illness Initial Comments: This is a 23-year-old female presenting for mild nausea, vomiting, decreased appetite and abdominal pain (2 out of 10) x 2 days. Patient endorses history of gallstones with similar symptoms in the past. Patient states pain radiates to middle of shoulder blades. Patient states that she is currently 20 weeks and 6 days . Patient denies [id number] medication use. Patient denies urinary symptoms, constipation, diarrhea, fever, chills. - Related Data Home Medications Medication Instructions Recorded Confirmed No Known Home Medications 12/02/23 12/02/23 Allergies Allergy/AdvReac Type Severity Reaction Status Date / Time amoxicillin Allergy Rash/Hives Verified 03/20/24 12:51 cat dander Allergy itching, Verified 12/02/23 11:46 sneezing Review of Systems ROS Statement: Those systems with pertinent positive or pertinent negative responses have been documented in the HPI. ROS Other: All systems not noted in ROS Statement are negative. Past Medical History Past Medical History: Asthma History of Any Multi-Drug Resistant Organisms: None Reported Past Surgical History: Appendectomy Past Psychological History: Anxiety, Depression Smoking Status: Vaper Past Alcohol Use History: None Reported Past Drug Use History: None Reported General Exam Limitations: no limitations General appearance: alert, in no apparent distress Head exam: Present: atraumatic, normocephalic, normal inspection Eye exam: Present: normal appearance, PERRL, EOMI. Absent: scleral icterus, conjunctival injection, periorbital swelling ENT exam: Present: normal exam, mucous membranes moist Neck exam: Present: normal inspection. Absent: tenderness, meningismus, lymphadenopathy Respiratory exam: Present: normal lung sounds bilaterally. Absent: respiratory distress, wheezes, rales, rhonchi, stridor Cardiovascular Exam: Present: regular rate, normal rhythm, normal heart sounds. Absent: systolic murmur, diastolic murmur, rubs, gallop, clicks GI/Abdominal exam: Present: soft, tenderness (Positive tenderness in right upper quadrant right lower quadrant epigastric region and umbilical region. Positive tympanic tenderness in the same regions. Negative rebound tenderness. States right upper quadrant TTP is worse. Negative Simon sign. Negative McBurney's point.), normal bowel sounds. Absent: distended, guarding, rebound, rigid Extremities exam: Present: normal inspection, full ROM, normal capillary refill. Absent: tenderness, pedal edema, joint swelling, calf tenderness Back exam: Present: normal inspection Neurological exam: Present: alert, oriented X3, CN II-XII intact Psychiatric exam: Present: normal affect, normal mood Skin exam: Present: warm, dry, intact, normal color. Absent: rash Course Vital Signs 03/20/24 12:49 Temperature 97.8 F Pulse Rate 67 Respiratory 20 Rate Blood Pressure 104/70 O2 Sat by Pulse 98 Oximetry Medical Decision Making - Medical Decision Making Was pt. sent in by a medical professional or institution (, PA, TRAFFIC LINE PAINTER, urgent care, hospital, or fpc...) When possible be specific @ -No Did you speak to anyone other than the patient for history (EMS, parent, family, police, friend...)? What history was obtained from this source @ -No Did you review nursing and triage notes (agree or disagree)? Why? @ -I reviewed and agree with nursing and triage notes Were old charts reviewed (outside hosp., previous admission, EMS record, old EKG, old radiological studies, urgent care reports/EKG's, fpc records)? Report findings @ -No old charts were reviewed Differential Diagnosis (chest pain, altered mental status, abdominal pain women, abdominal pain men, vaginal bleeding, weakness, fever, dyspnea, syncope, headache, dizziness, GI bleed, back pain, seizure, CVA, palpatations, mental health, musculoskeletal)? @ -Differential Abdominal Pain Women: Appendicitis, Cholecystitis, diverticulosis, ischemic bowel, pancreatitis, hepatitis, UTI, gastroenteritis, AAA, incarcerated hernia, bowel obstruction, constipation, inflammatory bowel, hepatitis, peptic ulcer disease, splenic infarction, perforated viscus, vulvitis, ovarian torsion, PID, kidney stone, placenta abruption, this is not meant to be an all-inclusive list EKG interpreted by me (3pts min.). @ -None done X-rays interpreted by me (1pt min.). @ -None done CT interpreted by me (1pt min.). @ -None done U/S interpreted by me (1pt. min.). @ -None done What testing was considered but not performed or refused? (CT, X-rays, U/S, labs)? Why? @ -None What meds were considered but not given or refused? Why? @ -None Did you discuss the management of the patient with other professionals (professionals i.e. , PA, TRAFFIC LINE PAINTER, lab, RT, psych nurse, social media assistant, polyethylene bag machine operator, teacher, environmental conservation officer, social work case manager)? Give summary @ -No Was smoking cessation discussed for >3mins.? @ -No Was critical care preformed (if so, how long)? @ -No Were there social determinants of health that impacted care today? How? (Homelessness, low income, unemployed, alcoholism, drug addiction, transportation, low edu. Level, literacy, decrease access to med. care, long-term, rehab)? @ -No Was there de-escalation of care discussed even if they declined (Discuss DNR or withdrawal of care, Hospice)? DNR status @ -No What co-morbidities impacted this encounter? (DM, HTN, Smoking, COPD, CAD, Cancer, CVA, ARF, Chemo, Hep., AIDS, mental health diagnosis, sleep apnea, morbid obesity)? @ -None Was patient admitted / discharged? Hospital course, mention meds given and route, prescriptions, significant lab abnormalities, going to OR and other pertinent info. @ -Discharge. Right upper quadrant ultrasound revealed 5 cm cholelithiasis. Work note provided to patient upon request. Patient notes mild nausea and deferring treatment at this time. Advised Unisom and vitamin B6 along with sheri tea/AL for nausea advised follow-up with primary care or return to ER if symptoms become severe Undiagnosed new problem with uncertain prognosis? @ -No Drug Therapy requiring intensive monitoring for toxicity (Heparin, Nitro, Insulin, Cardizem)? @ -No Were any procedures done? @ -No Diagnosis/symptom? @ -Cholelithiasis Acute, or Chronic, or Acute on Chronic? @ -Acute on chronic Uncomplicated (without systemic symptoms) or Complicated (systemic symptoms)? @ -Default Side effects of treatment? @ -No Exacerbation, Progression, or Severe Exacerbation? @ -No Poses a threat to life or bodily function? How? (Chest pain, USA, ID, pneumonia, PE, COPD, DKA, ARF, appy, cholecystitis, CVA, Diverticulitis, Homicidal, Suicidal, threat to staff... and all critical care pts) @ -No - Lab Data Lab Results 03/20/24 Range/Units 13:52 Urine Color Light Yellow Urine Appearance Clear (Clear) Urine pH 7.0 (5.0-8.0) Ur Specific [place] 1.018 (1.001-1.035) Urine Protein Negative (Negative) Urine Glucose (UA) 1+ H (Negative) Urine Ketones Trace H (Negative) Urine Blood Negative (Negative) Urine Nitrite Negative (Negative) Urine Bilirubin Negative (Negative) Urine Urobilinogen <2.0 (<2.0) mg/dL Ur Leukocyte Esterase Negative (Negative) Disposition Clinical Impression: Cholelithiasis affecting in second trimester, antepartum Disposition: HOME SELF-CARE Condition: Good Is patient prescribed a controlled substance at d/c from ED?: No Referrals: Frederick Gilmore MD [Primary Care Provider] - 1-2 days Time of Disposition: 14:23
[2024-03-20 14:01] LABS: Appearance,Urine Clear (Clear); Bilirubin,Urine Negative (Negative); Blood,Urine Negative (Negative); Color,Urine Light Yellow; Glucose,Urine (UA) 1+ (Negative); Ketones,Urine Trace (Negative); Leukocyte Esterase,Urine Negative (Negative); Nitrite,Urine Negative (Negative); Protein,Urine Negative (Negative); Specific Gravity,Urine 1.018 (1.001-1.035); Urobilinogen,Urine <2.0 mg/dL (<2.0)
--- NOTE | 2024-03-20 14:17 | US ---
EXAMINATION TYPE: US abdomen limited DATE OF EXAM: 03/20/2024 COMPARISON: US 01/15/2024 CLINICAL INDICATION: Female, 23 years old with history of ruq ttp, h/o gallstones; Hx of gallstones. Appendectomy. Patient is . TECHNIQUE: Grayscale color Doppler imaging of the right upper quadrant. FINDINGS: EXAM MEASUREMENTS: Liver Length: 17.7 cm Gallbladder Wall: 0.22 cm CBD: 0.39 cm Right Kidney: 10.6 x 5.6 x 5.1 cm MOBILE APPLICATION DEVELOPER NOTES: Exam is limited due to gas. Pancreas: Not well seen Liver: Measures upper limits. Gallbladder: Jagged hyperechoic material with posterior shadowing seen within the gallbladder: 5.1 x 2.6 x 0.9 cm. Evidence for sonographic Simon's sign: No CBD: Portions seen appear wnl Right Kidney: Limited visibility of lower pole. *Anechoic area seen upper pole: 1.9 x 1.5 x 1.7 cm. IMPRESSION: Cholelithiasis/biliary debris. [facility], , 03/20/2024 2:14 PM
== END 2024-03-20 14:36 | disposition home or self-care (01) ==
LOC: EC 12:48
CPT/HCPCS: 76705; 81003; 99284

== ENCOUNTER 2024-04-12 21:18 | Emergency (ER) | payer OTHER ==
[2024-04-12 21:22] VITALS: TEMP 98.3
--- NOTE | 2024-04-12 22:22 | ED ---
Abdominal Pain HPI - General Source: patient, RN notes reviewed Mode of arrival: ambulatory Limitations: no limitations <Serenity Guido - Last Filed: 04/12/24 23:58> <Teja Mills - Last Filed: 04/13/24 06:42> - General Chief Complaint: Abdominal Pain Stated Complaint: Post-Op Abdominal Pain, Vomiting Time Seen by Provider: 04/12/24 22:10 - History of Present Illness Initial Comments: 23-year-old female at 24 weeks gestation presenting with right upper quadrant abdominal pain x 7 hours with vomiting. Patient is 5 days status post laparoscopic cholecystectomy performed by Dr. Velez at [facility]. Patient states she was sitting down when at around 3 PM today she began to feel sharp pain in her right upper quadrant that radiates into her right flank. States she thought this may be due to constipation and took milk of magnesia. She then had a bowel movement with no symptom relief. Denies pelvic cramping or vaginal bleeding. She has had no complications thus far. States she is yet to schedule 2-week postop appointment with Dr. Velez. Denies redness or drainage from incision sites. (Serenity Guido) - Related Data Home Medications Medication Instructions Recorded Confirmed No Known Home Medications 12/02/23 12/02/23 Allergies Allergy/AdvReac Type Severity Reaction Status Date / Time amoxicillin Allergy Rash/Hives Verified 04/12/24 21:22 cat dander Allergy itching, Verified 04/12/24 21:22 sneezing Review of Systems ROS Other: All systems not noted in ROS Statement are negative. <Serenity Guido - Last Filed: 04/12/24 23:58> ROS Other: All systems not noted in ROS Statement are negative. <Teja Mills - Last Filed: 04/13/24 06:42> ROS Statement: Those systems with pertinent positive or pertinent negative responses have been documented in the HPI. Past Medical History Past Medical History: Asthma History of Any Multi-Drug Resistant Organisms: None Reported Past Surgical History: Appendectomy Past Psychological History: Anxiety, Depression Smoking Status: Vaper Past Alcohol Use History: None Reported Past Drug Use History: None Reported <Serenity Guido - Last Filed: 04/12/24 23:58> General Exam Limitations: no limitations General appearance: alert, in no apparent distress, anxious Head exam: Present: atraumatic, normocephalic, normal inspection Respiratory exam: Present: normal lung sounds bilaterally. Absent: respiratory distress, wheezes, rales, rhonchi, stridor Cardiovascular Exam: Present: regular rate, normal rhythm, normal heart sounds. Absent: systolic murmur, diastolic murmur, rubs, gallop, clicks GI/Abdominal exam: Present: soft, tenderness (Right upper quadrant tenderness to palpation), normal bowel sounds, other (Laparoscopic incision sites clean dry and intact, no surrounding erythema or drainage). Absent: distended, guarding, rebound, rigid Back exam: Present: normal inspection Neurological exam: Present: alert, oriented X3 Psychiatric exam: Present: normal affect, normal mood Skin exam: Present: warm, dry, intact, normal color. Absent: rash <Serenity Guido - Last Filed: 04/12/24 23:58> Course Vital Signs 04/12/24 04/13/24 04/13/24 21:19 00:09 01:10 Temperature 98.3 F Pulse Rate 88 79 87 Respiratory 20 18 16 Rate Blood Pressure 126/72 142/79 136/82 O2 Sat by Pulse 100 98 98 Oximetry Medical Decision Making - Lab Data Result diagrams: 04/12/24 22:28 04/12/24 22:28 <Serenity Guido - Last Filed: 04/12/24 23:58> - Lab Data Result diagrams: 04/12/24 22:28 04/12/24 22:28 <Teja Mills - Last Filed: 04/13/24 06:42> - Medical Decision Making Was pt. sent in by a medical professional or institution ([facility], LOCUM TENENS PSYCHIATRIST, urgent care, hospital, or intermediate...) When possible be specific @ -No Did you speak to anyone other than the patient for history (EMS, parent, family, police, friend...)? What history was obtained from this source @ -No Did you review nursing and triage notes (agree or disagree)? Why? @ -I reviewed and agree with nursing and triage notes Were old charts reviewed (outside hosp., previous admission, EMS record, old EKG, old radiological studies, urgent care reports/EKG's, intermediate records)? Report findings @ -No old charts were reviewed Differential Diagnosis (chest pain, altered mental status, abdominal pain women, abdominal pain men, vaginal bleeding, weakness, fever, dyspnea, syncope, headache, dizziness, GI bleed, back pain, seizure, CVA, palpatations, mental health, musculoskeletal)? @ -Differential Abdominal Pain Women: Appendicitis, Cholecystitis, diverticulosis, ischemic bowel, pancreatitis, hepatitis, UTI, gastroenteritis, AAA, incarcerated hernia, bowel obstruction, constipation, inflammatory bowel, hepatitis, peptic ulcer disease, splenic infarction, perforated viscus, vulvitis, ovarian torsion, PID, kidney stone, placenta abruption, this is not meant to be an all-inclusive list EKG interpreted by me (3pts min.). @ -None X-rays interpreted by me (1pt min.). @ -None done CT interpreted by me (1pt min.). @ -None done U/S interpreted by me (1pt. min.). @ -Ultrasound read pending at time of transfer What testing was considered but not performed or refused? (CT, X-rays, U/S, labs)? Why? @ -CT deferred as patient is currently at 24 weeks gestation What meds were considered but not given or refused? Why? @ -None Did you discuss the management of the patient with other professionals (professionals i.e. , PA, LOCUM TENENS PSYCHIATRIST, lab, RT, psych nurse, social service coordinator, cooker chip, teacher, fire officer, embedded case manager)? Give summary @ -I spoke with [facility] transfer team who accepts patient as ER to ER transfer Was smoking cessation discussed for >3mins.? @ -No Was critical care preformed (if so, how long)? @ -No Were there social determinants of health that impacted care today? How? (Homelessness, low income, unemployed, alcoholism, drug addiction, transport ation, low edu. Level, literacy, decrease access to med. care, snf, rehab)? @ -No Was there de-escalation of care discussed even if they declined (Discuss DNR or withdrawal of care, Hospice)? DNR status @ -No What co-morbidities impacted this encounter? (DM, HTN, Smoking, COPD, CAD, Cancer, CVA, ARF, Chemo, Hep., AIDS, mental health diagnosis, sleep apnea, morbid obesity)? @ -None Was patient admitted / discharged? Hospital course, mention meds given and route, prescriptions, significant lab abnormalities, going to OR and other pertinent info. @ -Transferred. This is a 23-year-old female at 24 weeks gestation presenting for right upper quadrant abdominal pain since 3 PM today. She is 5 days status post laparoscopic cholecystectomy with Dr. Velez at [facility]. Vital signs are within acceptable limits. No acute distress. There was mild tenderness to palpation in right upper quadrant. Patient was provided with analgesics. Laboratory studies including CBC, CMP, lactic acid, lipase remarkable for white blood cell count 14 with left shift. Patient was given 1 g IV Rocephin due to elevated white count. heart tones are performed by labor and delivery nurse and were normal. Patient was updated on results. Pain remains uncontrolled. I spoke with [facility] transfer team who accepts patient as an ER to ER transfer. Ultrasound right upper quadrant pending at time of transfer. Patient is agreeable to plan. Case was discussed with my ED attending Dr. Mills. Undiagnosed new problem with uncertain prognosis? @ -No Drug Therapy requiring intensive monitoring for toxicity (Heparin, Nitro, Insulin, Cardizem)? @ -No Were any procedures done? @ -No Diagnosis/symptom? @ -Right upper quadrant abdominal pain status post laparoscopic cholecystectomy Acute, or Chronic, or Acute on Chronic? @ -Acute Uncomplicated (without systemic symptoms) or Complicated (systemic symptoms)? @ -Complicated Side effects of treatment? @ -No Exacerbation, Progression, or Severe Exacerbation? @ -No Poses a threat to life or bodily function? How? (Chest pain, USA, [place], pneumonia, PE, COPD, DKA, ARF, appy, cholecystitis, CVA, Diverticulitis, Homicidal, Suicidal, threat to staff... and all critical care pts) @ -Possibly (Serenity Guido) - Lab Data Lab Results 04/12/24 04/12/24 04/12/24 Range/Units 22:28 22:28 22:28 WBC 14.2 H (3.8-10.6) k/uL RBC 3.97 (3.80-5.40) m/uL Hgb 12.1 (11.4-16.0) gm/dL Hct 35.0 (34.0-46.0) % MCV 88.0 (80.0-100.0) fL MCH 30.5 (25.0-35.0) pg MCHC 34.6 (31.0-37.0) g/dL RDW 13.3 (11.5-15.5) % Plt Count 388 (150-450) k/uL MPV 7.4 Neutrophils % 86 % Lymphocytes % 8 % Monocytes % 4 % Eosinophils % 1 % Basophils % 0 % Neutrophils # 12.2 H (1.3-7.7) k/uL Lymphocytes # 1.2 (1.0-4.8) k/uL Monocytes # 0.5 (0-1.0) k/uL Eosinophils # 0.1 (0-0.7) k/uL Basophils # 0.0 (0-0.2) k/uL Sodium 136 L (137-145) mmol/L Potassium 3.9 (3.5-5.1) mmol/L Chloride 103 (98-107) mmol/L Carbon Dioxide 25 (22-30) mmol/L Anion Gap 8 mmol/L BUN 5 L (7-17) mg/dL Creatinine 0.44 L (0.52-1.04) mg/dL Est GFR (CKD-EPI)AfAm >90 (>60 ml/min/1.73 sqM) Est GFR (CKD-EPI)NonAf >90 (>60 ml/min/1.73 sqM) Glucose 107 H (74-99) mg/dL Plasma Lactic Acid Leandro 0.9 (0.7-2.0) mmol/L Calcium 9.1 (8.4-10.2) mg/dL Total Bilirubin 0.4 (0.2-1.3) mg/dL AST 24 (14-36) U/L ALT 25 (4-34) U/L Alkaline Phosphatase 77 (38-126) U/L Total Protein 6.8 (6.3-8.2) g/dL Albumin 4.0 (3.5-5.0) g/dL Lipase 184 (23-300) U/L Disposition Time of Disposition: 00:13 - Out of Hospital Transfer - Req. Specs Out of Hospital Transfer - Requested Specifics: Other Emergency Center ([facility]) <Serenity Guido - Last Filed: 04/12/24 23:58> <Teja Mills - Last Filed: 04/13/24 06:42> Clinical Impression: Right upper quadrant abdominal pain Disposition: OTHER INSTITUTION NOT DEFINED Condition: Stable Referrals: Frederick Gilmore MD [Primary Care Provider] - 1-2 days
[2024-04-12] MEDS: MORPHINE SULFATE 2 MG/ML SYRINGE IVP ONE ×2 (22:34→23:38)
[2024-04-12 22:41] LABS: Basophils % (A) 0 %; Eosinophils # (A) 0.1 k/uL (0-0.7); Eosinophils % (A) 1 %; HGB 12.1 gm/dL (11.4-16.0); Lymphocytes # (A) 1.2 k/uL (1.0-4.8); Lymphocytes % (A) 8 %; MCH 30.5 pg (25.0-35.0); MCHC 34.6 g/dL (31.0-37.0); Mean Platelet Volume 7.4; Monocytes # (A) 0.5 k/uL (0-1.0); Monocytes % (A) 4 %; Neutrophils # (A) 12.2 k/uL (1.3-7.7); Neutrophils % (A) 86 %; Platelet Count 388 k/uL (150-450); RBC 3.97 m/uL (3.80-5.40); RDW 13.3 % (11.5-15.5); WBC 14.2 k/uL (3.8-10.6)
[2024-04-12 22:50] LABS: ALT 25 U/L (4-34); AST 24 U/L (14-36); African American GFR (CKD) >90 (>60 ml/min/1.73 sqM); Alkaline Phosphatase 77 U/L (38-126); Anion Gap 8 mmol/L; Blood Urea Nitrogen 5 mg/dL (7-17); Calcium 9.1 mg/dL (8.4-10.2); Carbon Dioxide 25 mmol/L (22-30); Chloride 103 mmol/L (98-107); Glucose 107 mg/dL (74-99); Lipase 184 U/L (23-300); Non-African American GFR(CKD) >90 (>60 ml/min/1.73 sqM); Potassium 3.9 mmol/L (3.5-5.1); Sodium 136 mmol/L (137-145); Total Bilirubin 0.4 mg/dL (0.2-1.3); Total Protein 6.8 g/dL (6.3-8.2)
--- NOTE | 2024-04-13 01:01 | US ---
EXAM: US Abdomen Complete CLINICAL HISTORY: US Reason: RUQ abdominal pain TECHNIQUE: Real-time ultrasound of the abdomen with image documentation. COMPARISON: No relevant prior studies available. FINDINGS: Liver: The liver measures 16.3 cm with normal appearance. No mass lesion is seen. No intrahepatic bile duct dilation. Gallbladder: The gallbladder has been removed. Common bile duct: The common bile duct is upper normal in diameter measuring 6 mm. No choledocholithiasis is seen. No dilation. Pancreas: The pancreas is not well visualized. Kidneys: 1.3 x 1.6 cm simple cyst in the right kidney. No follow-up is required. No stones. No hydronephrosis. Right kidney measures 10.7 cm. Spleen: Unremarkable. No splenomegaly. Aorta: Unremarkable. No abdominal aortic aneurysm. Inferior vena cava: The IVC is unremarkable. IMPRESSION: Previous cholecystectomy. No acute process is identified.
[2024-04-13] MEDS: MORPHINE SULFATE 2 MG/ML SYRINGE IVP ONE (01:06)
[2024-04-13 01:12] VITALS: BP 136/82; PULSE 87; RESP 16
== END 2024-04-13 01:10 | disposition other institution (70) ==
LOC: EC 21:18
CPT/HCPCS: 36415; 76705; 80053; 83605; 83690; 85025; 96365; 96375; 96376; 99285

== ENCOUNTER 2024-08-01 12:42 | Inpatient (IN) | payer OTHER ==
[2024-08-08 17:20] LABS: Basophils % (A) 0 %; Eosinophils # (A) 0.1 k/uL (0-0.7); Eosinophils % (A) 2 %; HCT 37.1 % (34.0-46.0); HGB 12.4 gm/dL (11.4-16.0); Lymphocytes # (A) 1.5 k/uL (1.0-4.8); Lymphocytes % (A) 16 %; MCH 29.4 pg (25.0-35.0); MCHC 33.5 g/dL (31.0-37.0); MCV 87.8 fL (80.0-100.0); Mean Platelet Volume 7.2; Monocytes # (A) 0.4 k/uL (0-1.0); Monocytes % (A) 5 %; Neutrophils # (A) 6.7 k/uL (1.3-7.7); Neutrophils % (A) 75 %; Platelet Count 444 k/uL (150-450); RBC 4.23 m/uL (3.80-5.40); RDW 13.7 % (11.5-15.5); WBC 8.9 k/uL (3.8-10.6)
--- NOTE | 2024-08-08 17:54 | P.HPOB ---
History of Present Illness H&P Date: 08/08/24 Chief Complaint: induction of labor Ms. Holbrook is a 23 year old at 41 weeks and 0 days gestation with EDC of 08/01/24 based on 14 week US who presents for induction of labor for post-dates gestation. her has been complicated by maternal cholecystitis for which she had a cholecystectomy during and a subsequent bilateral adrenal hemorrhage. She is now stable. The fetus is at 8 pounds and 11 ounces based on a growth US yesterday. work-up: blood type AB positive, antibody screen negative, rubella immune, VDRL non-reactive, HBsAg negative, HIV negative, HCV Ab non-reactive, gonorrhea negative, chlamydia negative, 1 hour GTT abornal, 3 hour GTT wnl, GBS negative. Past Medical History Past Medical History: Asthma History of Any Multi-Drug Resistant Organisms: None Reported Past Surgical History: Appendectomy Past Psychological History: Anxiety, Depression Smoking Status: Vaper Past Alcohol Use History: None Reported Past Drug Use History: None Reported Medications and Allergies Home Medications Medication Instructions Recorded Confirmed Type No Known Home Medications 12/02/23 08/08/24 History Allergies Allergy/AdvReac Type Severity Reaction Status Date / Time amoxicillin Allergy Rash/Hives Verified 08/08/24 16:23 cat dander Allergy itching, Verified 08/08/24 16:23 sneezing Exam Intake and Output 08/08/24 08/08/24 08/08/24 06:59 14:59 22:59 Other: Weight 92.533 kg Focused physical exam is performed. This is a healthy-appearing in no apparent distress. Breathing is non-labored. Abdomen is gravid and non-tender. Cervical exam is closed/thick/high. Sterile speculum used to insert a cooks catheter with 60cc in each balloon. Patient tolerated well. Extremities non- tender and non-edematous. heart tones are reactive on NST. Results Result Diagrams: 08/08/24 16:40 Assessment and Plan Assessment: 23 year old at 41 weeks gestation presenting for induction of labor Plan: Admit, clear liquid diet, cooks catheter with low-dose pitocin x 12 hours (remove 530 AM). Plan for AROM in the morning with pitocin per protocol. Time with Patient: Less than 30
[2024-08-08] MEDS: LACTATED RINGERS 1,000 ML IV SCH (17:58)
[2024-08-08] MEDS: OXYTOCIN 30 UNITS/500 ML NS 30 UNIT in SALINE 1 500ML.BAG IV SCH (17:59)
[2024-08-08] MEDS: NALBUPHINE 10 MG/ML (10 ML MDV) IV PRN (18:20)
[2024-08-08 18:42] VITALS: RESP 16
[2024-08-08] MEDS: ONDANSETRON 4 MG/2 ML VIAL IVP PRN (20:29)
[2024-08-09] MEDS ORDERED: KETOROLAC 15 MG/ML 1 ML VIAL ONE (02:10)
[2024-08-09] MEDS ORDERED: ePHEDrine 50 MG/ML 1 ML VIAL ONE (02:10)
[2024-08-09] MEDS ORDERED: ONDANSETRON 4 MG/2 ML VIAL ONE (02:10)
[2024-08-09] MEDS ORDERED: METHYLERGONOVINE 0.2 MG/ML 1 ML AMP ONE (02:10)
[2024-08-09] MEDS ORDERED: NALBUPHINE (ANES) 10 MG/ML - 1 ML AMP ONE (02:10)
[2024-08-09] MEDS ORDERED: OXYTOCIN 30 UNITS/500 ML NS BAG IV ONE (02:10)
[2024-08-09] MEDS ORDERED: OXYTOCIN 10 UNIT/ML 1 ML VIAL ONE (02:10)
[2024-08-09] MEDS ORDERED: MORPHINE SULFATE (PF) 0.3 MG/0.3 ML SYR ONE (02:10)
[2024-08-09] MEDS ORDERED: miSOPROStoL 200 MCG TAB PO PRN (17:42)
[2024-08-09] MEDS ORDERED: CARBOPROST TROMETHAMINE 250 MCG/ML 1 ML AMP IM PRN (17:42)
[2024-08-09] MEDS ORDERED: TRANEXAMIC 1,000 MG/100ML-NACL 1,000 MG in EMPTY BAG 1 BAG IV PRN (17:42)
[2024-08-09] MEDS ORDERED: METHYLERGONOVINE 0.2 MG/ML 1 ML AMP IM PRN (17:42)
[2024-08-09] MEDS ORDERED: OXYTOCIN 10 UNIT/ML 1 ML VIAL IM PRN (17:42)
[2024-08-09] MEDS: LACTATED RINGERS 1,000 ML IV ONE (18:15)
[2024-08-09] MEDS: CITRIC ACID-SODIUM CITRATE 15 ML CUP PO ONE (18:17)
[2024-08-09] MEDS ORDERED: fentaNYL (PF) 50 MCG/ML 5 ML AMP ONE (21:47)
[2024-08-09] MEDS ORDERED: ROPIVACAINE 5 MG/ML 30 ML VIAL ONE (21:47)
[2024-08-09] MEDS ORDERED: SODIUM CHLORIDE 0.9% 250 ML BAG ONE (21:47)
[2024-08-09] MEDS ORDERED: diphenhydrAMINE 50 MG CAP PO PRN (22:55)
[2024-08-09] MEDS ORDERED: NALOXONE 0.4 MG/ML 1 ML VIAL IV PRN (22:55)
[2024-08-09] MEDS ORDERED: diphenhydrAMINE 50 MG/ML 1 ML VIAL IVP PRN ×2 (22:55)
[2024-08-09] MEDS ORDERED: ZOLPIDEM 5 MG TAB PO PRN (22:55)
[2024-08-09] MEDS ORDERED: SIMETHICONE 80 MG CHEWABLE PO PRN (22:55)
[2024-08-09] MEDS ORDERED: ONDANSETRON 4 MG/2 ML VIAL IVP PRN (22:55)
[2024-08-09] MEDS ORDERED: METOCLOPRAMIDE 5 MG/ML 2 ML VIAL IVP PRN (22:55)
[2024-08-09] MEDS ORDERED: diphenhydrAMINE 25 MG CAP PO PRN (22:55)
--- NOTE | 2024-08-09 22:55 | P.OP ---
Date of Procedure: 08/09/24 Preoperative Diagnosis: 1. 41 weeks gestation 2. Arrest of active phase of labor 3. Prolonged rupture of membranes Postoperative Diagnosis: Same Procedure(s) Performed: Primary Lower Transverse Section Implants: None Anesthesia: local Surgeon: Gabrielle Arevalo [facility] Risk Control Consultant #1: Jennifer Main Estimated Blood Loss (ml): 760 IV fluids (ml): 1,000 Urine output (ml): 200 (clear urine) Pathology: none sent Condition: stable Disposition: floor Indications for Procedure: 23 year old at 41 weeks gestation being induced for post-dates gestation. Cooks catheter was placed yesterday evening. The patient had SROM around 2300 yesterday and cooks catheter was removed. Patient was dilated to 4 centimeters. Pitocin was titrated per protocol. She did make slow change to 9 centimeters dilation. She then had arrest of dilation for over 6 hours with no cervical change. section was recommended to the patient for maternal and well being. The risks, benefits, and alternatives to section were discussed with the patient including risk of bleeding, infection, damage to surrounding structures including bladder/bowels/ureters, and post-operative VTE. The patient understands these risks and desires to proceed with section. Operative Findings: Viable female in cephalic presentation. Apgars 8/9. Weight 8 pounds and 3 ounces (3720 grams). Normal uterus, bilateral fallopian tubes, and ovaries. Description of Procedure: The patient was taken back to the operating room where spinal anesthesia was found to be adequate. Two grams of Ancef were given for infection prophylaxis. Vaginal preparation was done. She was prepared and draped in the dorsal supine position with a leftward tilt. A Pfannenstiel skin incision was made with the scalpel. The incision was carried down to the fascia with a bovie. The fascia was incised and extended laterally with Phipps scissors. The superior aspect of the fascia was grasped with the Azam clamps. The underlying rectus muscle was dissected off sharply with Phipps scissors. In a similar fashion, the inferior aspect of the fascia was elevated with Azam clamps and the rectus muscle and pyramidalis were dissected off. Excellent hemostasis was achieved with the bovie. The rectus muscle was in the midline down to the level of the pubic symphysis. Pre-peritoneal fatty tissue was bluntly dissected to expose the peritoneum. The peritoneum was found to be free of adherent bowel and entered sharply with Phipps scissors. The peritoneal incision was extended superiorly and inferiorly to the bladder reflection with good visualization of the bladder. The bladder blade was inserted and vesicouterine peritoneum was identified. Intraabdominal survey revealed scant, clear peritoneal fluid and the thinned-out lower uterine segment. The bladder blade was repositioned to keep the bladder out of the operative field. The lower uterine segment was incised with a scalpel. Clear fluid was noted. The uterine incision was extended bluntly with lateral and upward traction. The fetus was in cephalic presentation. The head was elevated out of the pelvis with special attention paid to avoid using the uterine incision as a fulcrum. Gentle fundal pressure was applied once the head was brought into the incision. The infant was delivered with no difficulty and was noted to be crying spontaneously. The mouth and nose were suctioned with a bulb. The cord was clamped and cut. The infant was handed off to the high heel builder. IV oxytocin was initiated to facilitate uterine contractions. The placenta was delivered intact with manual massage of uterine fundus. The uterus was then exteriorized and the inside of the uterus was gently wiped with a lap sponge to assure complete removal of placental membranes. The uterine incision was closed with 0-Vicryl suture in a running locked fashion. A small vertical extension superior to the hysterotomy was noted and closed in a running locked fashion with 0-Vicryl. A second imbricating layer was placed with 0-Vicryl. The ovaries and tubes were found to be normal. The uterus, tubes, and ovaries were then gently returned to the abdominal cavity. The abdomen was copiously suction irrigated. The uterine incision was reinspected and excellent hemostasis was noted. The fascial layer was closed with a 0-Vicryl suture. The subcutaneous tissue was reapproximated with 2-0 Plain Gut. The skin was closed with 4-0 Monocryl in a subcuticular fashion.The patient tolerated the procedure well. All the counts were correct times two. The patient was taken to the recovery room in a stable condition. A physician surgical elastic knitter hand frame was utilized for the entire procedure due to the need for tissue retraction, dissection of vital structures, prevention and management of blood loss, and reduction in overall operative and anesthesia time as is the standard of care.
[2024-08-09] MEDS: LACTATED RINGERS 1,000 ML IV SCH (23:05)
[2024-08-10] MEDS: ACETAMINOPHEN TAB 500 MG TAB PO SCH (00:53)
[2024-08-10] MEDS: KETOROLAC 15 MG/ML 1 ML VIAL IVP SCH (05:38)
[2024-08-10 06:52] LABS: Basophils # (A) 0.1 k/uL (0-0.2); Basophils % (A) 0 %; Eosinophils # (A) 0.1 k/uL (0-0.7); Eosinophils % (A) 1 %; HCT 31.5 % (34.0-46.0); HGB 10.5 gm/dL (11.4-16.0); Lymphocytes # (A) 1.8 k/uL (1.0-4.8); Lymphocytes % (A) 12 %; MCH 29.8 pg (25.0-35.0); MCHC 33.4 g/dL (31.0-37.0); MCV 89.1 fL (80.0-100.0); Mean Platelet Volume 7.2; Monocytes # (A) 0.9 k/uL (0-1.0); Monocytes % (A) 6 %; Neutrophils # (A) 11.4 k/uL (1.3-7.7); Neutrophils % (A) 79 %; Platelet Count 336 k/uL (150-450); RBC 3.53 m/uL (3.80-5.40); RDW 13.9 % (11.5-15.5); WBC 14.4 k/uL (3.8-10.6)
--- NOTE | 2024-08-10 07:14 | P.PNOBGPC ---
Subjective - Subjective Principal diagnosis: s/p section Interval history: The patient is doing well this morning and had no acute events overnight. She has no complaints this morning. She reports minimal lochia. Awaiting spontaneous void. Patient tolerating PO. She is breast feeding her without difficulty. She denies chest pain, shortness of breathing, fevers, or chills overnight. She denies pain or swelling in the legs. Patient reports: Reports pain well controlled, Reports ambulating normally : doing well, nursing well Objective - Vital Signs Latest vital signs: Vital Signs Temp Pulse Resp BP Pulse Ox 08/10/24 03:41 97.9 F 75 16 101/64 97 08/10/24 00:45 98.4 F 90 16 118/58 99 08/10/24 00:30 81 16 119/59 99 08/10/24 00:15 78 16 107/52 97 08/10/24 00:00 81 16 118/56 98 08/09/24 23:45 77 16 100/56 98 08/09/24 23:30 73 16 107/56 98 08/09/24 23:15 85 16 94/76 98 08/09/24 23:00 80 16 97/70 98 08/09/24 22:45 97.1 F L 78 16 123/67 98 Intake and Output 08/09/24 08/10/24 08/10/24 22:59 06:59 14:59 Intake Total 29.083 Output Total 960 100 Balance -960 -70.917 Intake: Intake, IV Titration 29.083 Amount Oxytocin 30 Units/500 ml 29.083 Ns 30 unit In Saline 1 500ml.bag @ Per Protocol IV .Q0M [facility] Rx#:[id number] Output: Urine 200 Output, Quantitative 760 100 Blood Loss Other: Voiding Method Indwelling Catheter # Voids 1 600 - Exam Extremities: Present: normal Abdomen: Present: normal appearance, soft Incision: Present: normal, dry, intact Uterus: Present: normal, firm - Labs Labs: Abnormal Lab Results - Last 24 Hours (Table) 08/10/24 Range/Units 06:13 WBC 14.4 H (3.8-10.6) k/uL RBC 3.53 L (3.80-5.40) m/uL Hgb 10.5 L (11.4-16.0) gm/dL Hct 31.5 L (34.0-46.0) % Neutrophils # 11.4 H (1.3-7.7) k/uL Assessment and Plan Assessment: 23 year old now POD#1 s/p primary section for arrest of active labor Plan: 1. Post-operative. Patient meeting postoperative milestones appropriately. 2. Viable female infant. Doing well at bedside. Dispo: Anticipate discharge home on POD#2
--- NOTE | 2024-08-10 08:15 | P.PN ---
Progress Note - Text Progress Note Date: 08/10/24 (994) Anesthesia Postop day 1 Subjective: Status Post section with Duramorph. Patient seen and examined. Doing well without complaint. VAS 0. No nausea or vomiting. Mild pruritus tolerable.. Denies fever. Gross lower extremity strength intact. Without apparent anesthetic complications. Objective: Vital signs reviewed Heart: Regular Rate Lungs: Good chest excursion Abdomen: Appears nondistended Assessment: Status post section with Duramorph postop day 1 Plan: 1. Continue current care with your medical management. Anticipated end to the duration of the Duramorph around surgery time today. You may see increased pain needs around this time. 2. This note was dictated using Seeqpod software. Please be advised there is a potential for misspellings or errors in radiotelegraph operator.
[2024-08-10] MEDS: SENNOSIDES-DOCUSATE SODIUM 1 EACH TAB PO SCH (09:19)
[2024-08-11] MEDS: IBUPROFEN 800 MG TAB PO SCH (01:27)
--- NOTE | 2024-08-11 08:59 | P.DS ---
Providers Date of admission: 08/08/24 16:07 Expected date of discharge: 08/11/24 Attending physician: Gabrielle Arevalo MD Primary care physician: Stated None Hospital Course: Ms. Holbrook is a 23 year old now POD#2 s/p primary section after arrest of active labor. Her section was uncomplicated, please reference the operative report. The patient is doing well this morning and had no acute events overnight. She has no complaints this morning. She reports minimal lochia, passing flatus, voiding without difficulty, ambulating, and eating/drinking without nausea or vomiting. doing well at bedside. She denies chest pain, shortness of breathing, fevers, or chills overnight. She denies pain or swelling in the legs. Postoperative restrictions are reviewed with the patient including pelvic rest for 6 weeks, no lifting heavier than 15 pounds for 6 weeks. The patient is encouraged to call the office if she experiences any heavy bleeding, foul-smelling discharge, breast complaints, or any if she has any other concerns. She will follow up in the office with in 2 weeks for postoperative exam. She plans to use Motrin and Tylenol as needed OTC. All questions are answered. Patient Condition at Discharge: Good Plan - Discharge Summary New Discharge Prescriptions: No Action No Known Home Medications Discharge Medication List No Known Home Medications 12/02/23 [History] Follow up Appointment(s)/Referral(s): Gabrielle Arevalo MD [STAFF PHYSICIAN] - 2 Weeks () Activity/Diet/Wound Care/Special Instructions: Instructions 1. Do not begin any exercise program for 3 weeks. 2. Do not resume sexual relations for 6 weeks or longer if uncomfortable. 3. You may take tub baths or showers at any time. 4. You may use tampons if desired after 6 weeks. 5. Keep any areas repaired with stitches clean and dry. 6. If you are not nursing, wear a good fitting, supportive bra during the day and limit fluid intake for at least 1 week to prevent breast engorgement. 7. Call the office, , within the next week to make appointment for your 6 week checkup if it has not already been made. 8. Report any of the following occurrences to the doctor promptly: a. Heavy, excessive bleeding b. Chills, fever c. Burning or frequency of urination d. Pain or redness and breasts if nursing e. Increasing pain or swelling of vulva (stitches). In addition to the above instructions, the following additional should be followed: 1. No heavy lifting or straining (exercising) until after 6 week checkup. 2. Keep abdominal incision clean and dry: You may wear a dressing if more comfortable. 3. Make office appointment for 2 weeks after delivery date. Discharge Disposition: HOME SELF-CARE
[2024-08-11 09:54] VITALS: BP 110/69; PULSE 92; TEMP 97.4
== END 2024-08-11 12:30 | disposition home or self-care (01) | DRG 540 ==
LOC: 4FBP 08-08 16:07
PROVIDERS: ADMIT Obstetrics & Gynecology; ATTEND Obstetrics & Gynecology
PROC: 10D00Z1 Extraction of Products of Conception, Low, Open Approach (ICD-10-PCS; principal; 2024-08-08)
PROC: 3E033VJ Introduction of Other Hormone into Peripheral Vein, Percutaneous Approach (ICD-10-PCS; 2024-08-08)
PROC: 10907ZC Drainage of Amniotic Fluid, Therapeutic from Products of Conception, Via Natural or Artificial Opening (ICD-10-PCS; 2024-08-08)
PROC: 0U7C7ZZ Dilation of Cervix, Via Natural or Artificial Opening (ICD-10-PCS; 2024-08-08)
DX: O48.0 Post-term pregnancy (principal); O42.92 Full-term premature rupture of membranes, unspecified as to length of time between rupture and onset of labor; O62.0 Primary inadequate contractions; O62.1 Secondary uterine inertia; L29.9 Pruritus, unspecified; Z37.0 Single live birth; Z3A.41 41 weeks gestation of pregnancy; Z88.0 Allergy status to penicillin
CPT/HCPCS: 85025; 86850; 86900; 86901